=== PATIENT | female | born 1980 | race American Indian/Alaskan Native ===

== ENCOUNTER 2022-04-01 06:41 | Emergency (ER) | payer MEDICAID ==
[2022-04-01 07:16] VITALS: BP 137/84
[2022-04-01 11:00] LABS: Basophils # (Auto) 0.1 K/mm3 (0.0-0.1); Basophils % (Auto) 1.4 % (0.0-1.8); Eosinophils # (Auto) 0.2 K/mm3 (0.0-0.4); Hematocrit 35.9 % (30.3-42.9); Hemoglobin 12.2 gm/dl (10.1-14.3); Lymphocytes # (Auto) 3.3 K/mm3 (1.2-5.4); Lymphocytes % (Auto) 39.9 % (13.4-35.0); Mean Corpuscular HGB Conc 34 % (30-34); Mean Corpuscular Volume 81 fl (79-97); Monocytes # (Auto) 0.4 K/mm3 (0.0-0.8); Platelet Count 434 K/mm3 (140-440); Red Blood Count 4.43 M/mm3 (3.65-5.03); Red Cell Distribution Width 14.6 % (13.2-15.2)
--- NOTE | 2022-04-01 11:10 | Emergency Department Report ---
ED General Adult HPI - General Chief complaint: Pain General Stated complaint: MUSCLE SPASMS Source: patient Mode of arrival: Ambulatory Limitations: No Limitations - History of Present Illness Initial comments: Patient is a 41-year-old -[place] female with a history of seizures and chronic osteoarthritis who presents to the ED with complaint of acute onset persistent diffuse body aches and pains with muscle spasm of her lower back, lower extremities and upper extremities bilaterally and right knee pain for the last 2 days. Patient states that the pain is constant and persistent and that she usually experiences hypokalemia with these symptoms. Patient states that she has previously been treated for high Hypokalemia whenever he experienced similar symptoms in the past. Patient states that she is concerned that her potassium might be low and would like to be evaluated and treated for the same. Patient denies chest pain or shortness of breath, fall, traumatic injury, dizziness, syncope, numbness and tingling or weakness of upper and lower extremities bilaterally, change in vision, nausea and vomiting, diarrhea, palpitations, headache, traumatic injury, heavy lifting, fever and chills or headache. MD Complaint: Right knee pain; body aches and pains -: Sudden, days(s) (2) Location: back (Low back pain), upper extremity (Upper extremity pain), lower extremity (Lower extremity pain) Radiation: non-radiation Severity scale (0 -10): 9 Quality: aching, sharp Consistency: constant Improves with: none Worsens with: movement Associated Symptoms: denies other symptoms. denies: confusion, cough, diaphores is, fever/chills, headaches, loss of appetite, malaise, nausea/vomiting, rash, seizure, shortness of breath, syncope, weakness, other Treatments Prior to Arrival: none - Related Data Previous Rx's Medication Instructions Recorded Last Taken Type Acetaminophen/Codeine [Tylenol 1 tab PO Q6H PRN #12 tab 04/01/22 Unknown Rx /Codeine # 3 tab] Gabapentin 300 mg PO BID #60 cap 04/01/22 Unknown Rx methOCARBAMOL [Robaxin TAB] 750 mg PO Q8H PRN #30 tab 04/01/22 Unknown Rx predniSONE [Deltasone] 60 mg PO QDAY #15 tab 04/01/22 Unknown Rx Allergies Allergy/AdvReac Type Severity Reaction Status Date / Time ibuprofen Allergy Unknown Verified 04/01/22 07:16 ED Review of Systems ROS: Stated complaint: MUSCLE SPASMS Other details as noted in HPI Constitutional: denies: chills, fever Eyes: denies: eye pain, eye discharge, vision change ENT: denies: ear pain, throat pain Respiratory: denies: cough, shortness of breath, wheezing Cardiovascular: denies: chest pain, palpitations Endocrine: no symptoms reported Gastrointestinal: denies: abdominal pain, nausea, diarrhea Genitourinary: denies: urgency, dysuria, discharge Musculoskeletal: back pain, arthralgia (Right knee pain and swelling), myalgia, other (Diffuse upper and lower extremity pain). denies: joint swelling Skin: denies: rash, lesions Neurological: denies: headache, weakness, paresthesias Psychiatric: denies: anxiety, depression Hematological/Lymphatic: denies: easy bleeding, easy bruising ED Past Medical Hx - Past Medical History Previous Medical History?: Yes Hx Seizures: Yes Additional medical history: Chronic muscle spasm - Medications Home Medications: Home Medications Medication Instructions Recorded Confirmed Last Taken Type Acetaminophen/Codeine [Tylenol 1 tab PO Q6H PRN #12 tab 04/01/22 Unknown Rx /Codeine # 3 tab] Gabapentin 300 mg PO BID #60 cap 04/01/22 Unknown Rx methOCARBAMOL [Robaxin TAB] 750 mg PO Q8H PRN #30 tab 04/01/22 Unknown Rx predniSONE [Deltasone] 60 mg PO QDAY #15 tab 04/01/22 Unknown Rx ED Physical Exam - General Limitations: No Limitations General appearance: alert, in no apparent distress - Head Head exam: Present: atraumatic, normocephalic, normal inspection - Eye Eye exam: Present: normal appearance, PERRL, EOMI Pupils: Present: normal accommodation - ENT ENT exam: Present: normal exam, normal orophraynx, mucous membranes moist, TM's normal bilaterally, normal external ear exam - Neck Neck exam: Present: normal inspection, full ROM. Absent: tenderness, lymphadenopathy - Respiratory Respiratory exam: Present: normal lung sounds bilaterally. Absent: respiratory distress, wheezes, rales, rhonchi, chest wall tenderness, accessory muscle use, decreased breath sounds, prolonged expiratory, other - Cardiovascular Cardiovascular Exam: Present: regular rate, normal rhythm, normal heart sounds. Absent: systolic murmur, diastolic murmur, rubs, gallop - GI/Abdominal GI/Abdominal exam: Present: soft, normal bowel sounds. Absent: tenderness, guarding, rebound, hyperactive bowel sounds, hypoactive bowel sounds, mass, bruit - Extremities Exam Extremities exam: Present: normal inspection, full ROM, tenderness (Palpable right knee tenderness with mild swelling), normal capillary refill, joint swelling (Mild redness joint swelling and tenderness). Absent: pedal edema, calf tenderness - Back Exam Back exam: Present: normal inspection, full ROM, tenderness (Palpable lumbosacral paraspinal musculoskeletal tenderness), muscle spasm, paraspinal t enderness. Absent: CVA tenderness (R), CVA tenderness (L), vertebral tenderness - Neurological Exam Neurological exam: Present: alert, oriented X3, CN II-XII intact, normal gait, reflexes normal - Psychiatric Psychiatric exam: Present: normal affect, normal mood - Skin Skin exam: Present: warm, dry, intact, normal color. Absent: rash ED Course Vital Signs 04/01/22 04/01/22 07:15 12:12 Temperature 98.5 F 98.5 F Pulse Rate 91 H 82 Respiratory 16 16 Rate Blood Pressure 137/84 137/84 [Right] O2 Sat by Pulse 99 100 Oximetry ED Medical Decision Making - Lab Data Result diagrams: 04/01/22 10:38 04/01/22 10:38 - Medical Decision Making This is a 41-year-old -[place] female with a history of seizures and chronic osteoarthritis who presents to the ED with complaint of acute onset persistent diffuse body aches and pains with muscle spasm of her lower back, lower extremities and upper extremities bilaterally and right knee pain for the last 2 days. Patient states that the pain is constant and persistent and that she usually experiences hypokalemia with these symptoms. Patient states that she has previously been treated for high Hypokalemia whenever he experienced similar symptoms in the past. Patient states that she is concerned that her potassium might be low and would like to be evaluated and treated for the same. In the ED, patient is alert and oriented x3 and is not in any distress. Henry solis is medically stable. Lab test results were reviewed and are all nonactionable. Patient was discharged home on medications for pain and advised to follow-up with her primary care physician in 7 to 10 days for reevaluation or return to the ED immediately if symptoms get worse. All lab test results were reviewed and are all nonactionable. Patient was therefore discharged home on medications and advised to follow-up with her primary care physician in 7 to 10 days for reevaluation. Patient was advised to return to the ED immediately if symptoms get worse. - Differential Diagnosis Muscle spasm; muscle strain; chronic osteoarthritis; chronic pain syndrome Critical care attestation.: If time is entered above; I have spent that time in minutes in the direct care of this critically ill patient, excluding procedure time. ED Disposition Clinical Impression: Chronic osteoarthritis, Spasm of muscle of lower back, Strain of muscle, fascia and tendon of lower back, initial encounter Disposition: HOME / SELF CARE / HOMELESS Is pt being admited?: No Does the pt Need Aspirin: No Condition: Stable Instructions: Muscle Cramps and Spasms, [id number], Arthritis, [id number], Arthritis, Muscle Strain, Ramy-uu-[id number], Lumbosacral Strain Additional Instructions: All lab test results were reviewed and are all nonactionable. Your potassium [place] is normal. Therefore take medications with food, drink plenty of fluids and follow-up with your primary care physician in 7 to 10 days for reevaluation or return to the ED immediately if symptoms get worse. Prescriptions: predniSONE [Deltasone] 60 mg PO QDAY #15 tab Gabapentin 300 mg PO BID #60 cap methOCARBAMOL [Robaxin TAB] 750 mg PO Q8H PRN #30 tab PRN Reason: Muscle Spasm Acetaminophen/Codeine [Tylenol /Codeine # 3 tab] 1 tab PO Q6H PRN #12 tab PRN Reason: Pain , Severe (7-10) Referrals: [facility] [Provider Group] - 7-10 days Forms: Work/School Excuse Out Patient Time of Disposition: 11:12 Print Language: CROATIAN
[2022-04-01 11:37] LABS: Alanine Aminotransferase 13 units/L (7-56); Albumin 4.6 g/dL (3.9-5); BUN/Creatinine Ratio 13; Blood Urea Nitrogen 10 mg/dL (7-17); Calcium 9.6 mg/dL (8.4-10.2); Hemolysis Index 7
== END 2022-04-01 12:13 | disposition home or self-care (01) ==
LOC: ED 06:41
DX: S39.012A Strain of muscle, fascia and tendon of lower back, initial encounter (principal); M19.90 Unspecified osteoarthritis, unspecified site; G89.29 Other chronic pain; Z88.6 Allergy status to analgesic agent; Z79.899 Other long term (current) drug therapy; X58.XXXA Exposure to other specified factors, initial encounter; Y93.89 Activity, other specified; Y92.89 Other specified places as the place of occurrence of the external cause; Y99.8 Other external cause status
CPT/HCPCS: 36415; 80053; 85025; 99283

== ENCOUNTER 2022-08-02 09:29 | Emergency (ER) | payer MEDICAID ==
[2022-08-02] MEDS ORDERED: ONDANSETRON 4 MG/2 ML INJ ONE (10:37)
[2022-08-02] MEDS ORDERED: SODIUM CHLORIDE 0.9% 1000 ML 1,000 ML ONE (10:37)
[2022-08-02] MEDS ORDERED: SODIUM CHLORIDE 0.9% 1000 ML 1,000 ML IV ONE (10:45)
[2022-08-02] MEDS ORDERED: ONDANSETRON 4 MG/2 ML INJ IV ONE (10:58)
[2022-08-02] MEDS ORDERED: fentaNYL 100 MCG/2 ML INJ ONE (11:31)
[2022-08-02] MEDS ORDERED: fentaNYL 100 MCG/2 ML INJ IV ONE (11:35)
[2022-08-02 12:18] LABS: Hematocrit 32.7 % (30.3-42.9); Hemoglobin 11.1 gm/dl (10.1-14.3); Mean Corpuscular HGB Conc 34 % (30-34); Mean Corpuscular Volume 81 fl (79-97); Platelet Count 385 K/mm3 (140-440); Red Blood Count 4.05 M/mm3 (3.65-5.03)
[2022-08-02 12:42] LABS: Alanine Aminotransferase 8 units/L (7-56); Albumin 3.9 g/dL (3.9-5); Blood Urea Nitrogen 8 mg/dL (7-17); Calcium 8.6 mg/dL (8.4-10.2); Hemolysis Index 11
[2022-08-02 12:43] LABS: BUN/Creatinine Ratio 11
--- NOTE | 2022-08-02 12:57 | Emergency Department Report ---
ED General Adult HPI - General Chief complaint: Dyspnea/Respdistress Stated complaint: DEIDRA Time Seen by Provider: 08/02/22 10:45 Source: patient, EMS Mode of arrival: Stretcher Limitations: No Limitations - History of Present Illness Initial comments: 41-year-old morbidly obese female with history of seizure who presents with palpitation associated with sob that started this a.m. Patient reported that she woke up with heart palpitation with mild chest discomfort. No recent long distance travel reported. No fever or chills reported. Patient observed checking both legs during the examination. When asked specifically why she was doing this she said because of head pain--headache. No other modifying or associated factors reported. Severity scale (0 -10): 10 - Related Data Previous Rx's Medication Instructions Recorded Last Taken Type Acetaminophen/Codeine [Tylenol 1 tab PO Q6H PRN #12 tab 04/01/22 Unknown Rx /Codeine # 3 tab] Gabapentin 300 mg PO BID #60 cap 04/01/22 Unknown Rx methOCARBAMOL [Robaxin TAB] 750 mg PO Q8H PRN #30 tab 04/01/22 Unknown Rx predniSONE [Deltasone] 60 mg PO QDAY #15 tab 04/01/22 Unknown Rx Promethazine [Phenergan] 25 mg PO Q8HR PRN 5 Days #15 tab NS 08/02/22 Unknown Rx levoFLOXacin [Levaquin TAB] 500 mg PO QDAY 7 Days #7 tablet NS 08/02/22 Unknown Rx Allergies Allergy/AdvReac Type Severity Reaction Status Date / Time ibuprofen Allergy Unknown Verified 08/02/22 09:37 ED Review of Systems ROS: Stated complaint: DEIDRA Other details as noted in HPI Comment: All other systems reviewed and negative Respiratory: cough Cardiovascular: palpitations ED Past Medical Hx - Past Medical History Hx Seizures: Yes Additional medical history: Chronic muscle spasm - Social History Smoking Status: Former Smoker - Medications Home Medications: Home Medications Medication Instructions Recorded Confirmed Last Taken Type Acetaminophen/Codeine [Tylenol 1 tab PO Q6H PRN #12 tab 04/01/22 Unknown Rx /Codeine # 3 tab] Gabapentin 300 mg PO BID #60 cap 04/01/22 Unknown Rx methOCARBAMOL [Robaxin TAB] 750 mg PO Q8H PRN #30 tab 04/01/22 Unknown Rx predniSONE [Deltasone] 60 mg PO QDAY #15 tab 04/01/22 Unknown Rx Promethazine [Phenergan] 25 mg PO Q8HR PRN 5 Days #15 tab NS 08/02/22 Unknown Rx levoFLOXacin [Levaquin TAB] 500 mg PO QDAY 7 Days #7 tablet NS 08/02/22 Unknown Rx ED Physical Exam - General Limitations: No Limitations General appearance: alert, in no apparent distress - Head Head exam: Present: normal inspection - Eye Eye exam: Present: normal appearance Pupils: Present: normal accommodation - ENT ENT exam: Present: normal exam, normal orophraynx, mucous membranes moist - Neck Neck exam: Present: normal inspection, full ROM. Absent: tenderness - Respiratory Respiratory exam: Present: normal lung sounds bilaterally. Absent: respiratory distress, accessory muscle use - Cardiovascular Cardiovascular Exam: Present: normal rhythm, tachycardia, normal heart sounds - GI/Abdominal GI/Abdominal exam: Present: soft, normal bowel sounds. Absent: distended, tenderness - Extremities Exam Extremities exam: Present: normal inspection, full ROM, normal capillary refill. Absent: tenderness, pedal edema - Back Exam Back exam: Absent: tenderness - Neurological Exam Neurological exam: Present: alert, oriented X3 - Psychiatric Psychiatric exam: Present: normal affect, anxious - Skin Skin exam: Present: warm, normal color ED Course Vital Signs 08/02/22 08/02/22 08/02/22 09:36 10:07 10:16 Temperature 100.2 F H Pulse Rate 112 H 117 H Respiratory 15 Rate Blood Pressure 143/88 143/88 Blood Pressure 169/96 [Left] O2 Sat by Pulse 96 92 93 Oximetry 08/02/22 08/02/22 08/02/22 10:30 10:46 10:52 Temperature Pulse Rate 114 H 119 H Respiratory 30 H 40 H Rate Blood Pressure 134/88 143/82 Blood Pressure [Left] O2 Sat by Pulse 94 91 98 Oximetry 08/02/22 08/02/22 08/02/22 11:00 11:16 11:30 Temperature Pulse Rate 113 H 110 H 114 H Respiratory 25 H 38 H 26 H Rate Blood Pressure 143/82 143/82 143/82 Blood Pressure [Left] O2 Sat by Pulse 95 94 94 Oximetry 08/02/22 08/02/22 08/02/22 11:46 12:00 12:16 Temperature Pulse Rate 110 H 108 H 105 H Respiratory 12 13 34 H Rate Blood Pressure 130/63 130/63 130/63 Blood Pressure [Left] O2 Sat by Pulse 94 95 95 Oximetry 08/02/22 12:30 Temperature Pulse Rate 107 H Respiratory 31 H Rate Blood Pressure 130/63 Blood Pressure [Left] O2 Sat by Pulse 94 Oximetry ED Medical Decision Making - Lab Data Result diagrams: 08/02/22 11:59 08/02/22 11:59 - EKG Data EKG shows normal: sinus rhythm Rate: tachycardia - EKG Data 08/02/22 12:57 Noted with sinus tachycardia at a rate of [address] elevation or depression but left atrial enlargement and this abnormal ECG. - Radiology Data FINDINGS: SUPPORT DEVICES: None. HEART / MEDIASTINUM: No significant abnormality. LUNGS / PLEURA: Subtle airspace opacity is suggested at the right lung base. The remainder of the lungs are clear. No pleural effusion or pneumothorax. ADDITIONAL FINDINGS: No significant additional findings. IMPRESSION: 1. Possible early right lower lung pneumonia. Correlate with the patient's clinical presentation. - Medical Decision Making Here with palpitation --but differential could be and not limited to seizure, symptomatic anemia, myocardial infarction, pulmonary embolism, anxiety, CVA e specially posterior stroke or thyroid abnormality--in order to rule those out I will go ahead and order routine cardiopulmonary work-up that include troponin, EKG, chest x-ray, BNP, CKMB, and CBC, CMP, Urinalysis and thyroid panel for any correctable infectious process or electrolyte abnormality as a cause. In the meantime will give ivf ns 1L bolus for hydration and given fentanyl and zofran for symptomatic relief- Lab reviewed and noted with leukocytosis with white count of 13.6 and left shift coupled with chest x-ray that shows possible early right lower lobe infiltrate--we will go ahead and treat this patient with p.o. antibiotics considering very low pneumonia index--[id number]--Levaquin x 7 days and close follow up with her PCP -- Critical care attestation.: If time is entered above; I have spent that time in minutes in the direct care of this critically ill patient, excluding procedure time. ED Disposition Clinical Impression: Palpitations, SOB (shortness of breath), Anxiety Pneumonia Qualifiers: Pneumonia type: due to unspecified organism Laterality: right Lung location: lower lobe of lung Qualified Code(s): J18.9 - Pneumonia, unspecified organism Disposition: 01 HOME / SELF CARE / HOMELESS Is pt being admited?: No Does the pt Need Aspirin: No Condition: Stable Instructions: Bacterial Pneumonia (ED), Shortness of Breath, Adult, [id number], Community-Acquired Pneumonia, Adult, [id number] Additional Instructions: It is very important that you take and complete your antibiotics as prescribed to continue to help your symptoms It is equally important that you call and schedule follow-up with your primary doctor in the next 3 to 5 days for progress Please do not hesitate to call or return to emergency room if your symptoms worsen Prescriptions: levoFLOXacin [Levaquin TAB] 500 mg PO QDAY 7 Days #7 tablet NS Promethazine [Phenergan] 25 mg PO Q8HR PRN 5 Days #15 tab NS PRN Reason: Nausea Time of Disposition: 14:25
[2022-08-02 12:58] LABS: Anisocytosis 1+; Platelet Estimate Consistent w Auto; Total Cells Counted 100
[2022-08-02] MEDS ORDERED: MIDAZOLAM 2 MG/2 ML INJ ONE (13:10)
--- NOTE | 2022-08-02 13:30 | XRay Report ---
CHEST 1 VIEW 08/02/2022 12:21 PM INDICATION / CLINICAL INFORMATION: Dyspnea. COMPARISON: None available. FINDINGS: SUPPORT DEVICES: None. HEART / MEDIASTINUM: No significant abnormality. LUNGS / PLEURA: Subtle airspace opacity is suggested at the right lung base. The remainder of the raquel gs are clear. No pleural effusion or pneumothorax. ADDITIONAL FINDINGS: No significant additional findings. IMPRESSION: 1. Possible early right lower lung pneumonia. Correlate with the patient's clinical presentation. Signer Name: Emiliano Hand Jr, MD Signed: 08/02/2022 1:26 PM Workstation Name: [id number]
[2022-08-02 13:38] LABS: INR 1.04 (0.87-1.13)
[2022-08-02 13:39] LABS: Partial Thromboplastin Time 30.6 Sec. (24.2-36.6)
[2022-08-02] MEDS ORDERED: MIDAZOLAM 5 MG/5 ML INJ MDV IV NR (14:00)
[2022-08-02 16:49] VITALS: BP 128/76
--- NOTE | 2022-08-03 13:33 | Electrocardiograph Report ---
[facility] Test Date: 2022-08-02 Test Time: 09:53:33 Pat Name: BALDO ABRAHAM Department: Room: Gender: F Laboratory Phlebotomist: CHITO : 1980 Requested By: ISABELLE CARRILLO Order Number: [id number] Reading MD: Eevline Merrill Measurements Intervals [place] Rate: 115 P: 75 VT: 125 QRS: 75 QRSD: 83 T: 31 QT: 324 QTc: 448 Interpretive Statements Sinus tachycardia Left atrial enlargement No previous ECG available for comparison Electronically Signed On 08-03-2022 13:33:00 EDT by Eveline Merrill
== END 2022-08-02 14:15 | disposition home or self-care (01) ==
LOC: ED 09:29
DX: J18.9 Pneumonia, unspecified organism (principal); R06.02 Shortness of breath; R00.2 Palpitations; F41.9 Anxiety disorder, unspecified; R56.9 Unspecified convulsions; Z87.891 Personal history of nicotine dependence; Z91.09 Other allergy status, other than to drugs and biological substances
CPT/HCPCS: 36415; 71045; 80053; 83690; 84484; 85007; 85025; 85379; 85610; 85730; 93005; 96361; 96374; 96375; 99284; J2250; J2405; J3010; J7030; 96365